=== PATIENT | female | born 1980 | race Caucasian/White ===

== ENCOUNTER 2018-01-03 14:50 | Emergency (ER) | payer OTHER ==
[2018-01-03 14:57] VITALS: BP 115/93
[2018-01-03] MEDS ORDERED: ONDANSETRON DISINTEGRATING 4 MG TAB PO ONE (15:22)
--- NOTE | 2018-01-03 15:22 | EDPHY ---
H & P Stated Complaint: Sent by for eval UTI/kidney infection;rx'd IV Ceftriaxone @ Time Seen by Provider: 01/03/18 15:00 HPI/ROS: CHIEF COMPLAINT: Right flank pain, fever HISTORY OF PRESENT ILLNESS: 37-year-old female presents with right flank pain and fever. Onset of dysuria and urinary frequency 2 days ago. Fever started yesterday, associated with shaking chills and nausea. Right flank pain is moderate and persistent. She was seen at [facility] urgent care just prior to arrival. Urinalysis was positive for urinary tract infection and a urine culture was sent. She was given ceftriaxone 1 g IV and Toradol 15 mg IV. Sent to the emergency department because of leukocytosis. White blood cell count 18. No prior history of UTI or pyelonephritis. REVIEW OF SYSTEMS: complete 10 point ROS reviewed and is negative except for the noted elements in the HPI - Personal History LMP (Females 10-55): 8-14 Days Ago Current Tetanus Diphtheria and Acellular Pertussis (TDAP): Yes - Medical/Surgical History Other PMH: depression - Social History Smoking Status: Never smoked Alcohol Use: Sober Drug Use: None - Physical Exam Exam: General Appearance: Alert, pleasant, nontoxic-appearing Eyes: Pupils equal and round, no conjunctival pallor or injection ENT, Mouth: Mucous membranes moist Neck: Normal inspection Respiratory: Lungs are clear to auscultation Cardiovascular: Regular rate and rhythm Gastrointestinal: Abdomen is soft, mild right upper quadrant tenderness Back: Right CVA tenderness Neurological: A&O, nonfocal, normal gait Skin: Warm and dry, no rash Extremities: Normal inspection Psychiatric: Mood and affect normal Constitutional: Initial Vital Signs Temperature (C) 37 C 01/03/18 14:52 Heart Rate 73 01/03/18 14:52 Respiratory Rate 16 01/03/18 14:52 Blood Pressure 115/93 H 01/03/18 14:52 O2 Sat (%) 97 01/03/18 14:52 O2 Delivery Mode Room Air Allergies/Adverse Reactions: No Known Allergies Allergy (Unverified 01/03/18 14:57) Home Medications: Medication Instructions Recorded Bcp 01/03/18 Cefdinir [Omnicef (*)] 300 mg PO BID #20 cap 01/03/18 Citalopram [CeleXA] 20 mg PO 01/03/18 Hydrocodone/APAP 5/325 [[place] 1 - 2 tab PO Q4H PRN #10 tab 01/03/18 5/325] Ondansetron Odt [Zofran Odt 4 mg 4 mg PO Q4 PRN #6 tab 01/03/18 (*)] Medical Decision Making ED Course/Re-evaluation: This patient presents with pyelonephritis. She already received ceftriaxone and a urine culture was sent. She does not meet SIRS criteria. She is nontoxic -appearing and I feel that she can be safely treated as an outpatient. Zofran 4 mg ODT given. Instructions given. Differential Diagnosis: Differential diagnosis includes though it is not limited to appendicitis, cholecystitis, diverticulitis, bowel perforation, small bowel obstruction. - Data Points Medications Given: Discontinued Medications Ondansetron HCl (Zofran Odt) 4 mg PO EDNOW ONE Stop: 01/03/18 15:23 Last Admin: 01/03/18 15:27 Dose: 4 mg Departure - Departure Disposition: Home, Routine, Self-Care Clinical Impression: Acute pyelonephritis Condition: Good Instructions: Kidney Infection (ED) Additional Instructions: Drink plenty of fluids. Take Zofran every 6 hr as needed for nausea. Take Omnicef as prescribed. Alternate Tylenol and ibuprofen every 3 hr for fever and pain control. Take Marmarth as needed. Marmarth contains Tylenol so do not take Tylenol and Marmarth within 4 hr of each other. Call in 2 days for urine culture results. Return for worsening symptoms or any concerns. Referrals: NONE *PRIMARY CARE P,. [Primary Care Provider] - As per Instructions Prescriptions: Cefdinir [Omnicef (*)] 300 mg PO BID #20 cap Hydrocodone/APAP 5/325 [[place] 5/325] 1 - 2 tab PO Q4H PRN #10 tab PRN Reason: Pain, Moderate Ondansetron Odt [Zofran Odt 4 mg (*)] 4 mg PO Q4 PRN #6 tab PRN Reason: Nausea
== END 2018-01-03 15:35 | disposition home or self-care (01) ==
DX: N10 Acute pyelonephritis (principal)